=== PATIENT | female | born 1960 | race African-American/Black ===

== ENCOUNTER 2018-12-07 01:47 | Emergency (ER) | payer MEDICAID ==
[~2018-12-07] VITALS: Ht 175.3 cm; Wt 122.5 kg
[2018-12-07 02:00] VITALS: BP_SYST 124
[2018-12-07 07:05] VITALS: BP_SYST 124
== END 2018-12-07 07:05 | disposition home or self-care (01) ==
LOC: SED 01:47
DX: K21.9 Gastro-esophageal reflux disease without esophagitis (principal)
CPT/HCPCS: 99283

== ENCOUNTER 2019-04-30 12:44 | Emergency (ER) | payer MEDICAID ==
[~2019-04-30] VITALS: Ht 175.3 cm; Wt 140.6 kg
[2019-04-30 13:05] VITALS: BP_SYST 156
[2019-04-30 14:05] VITALS: BP_SYST 156
== END 2019-04-30 14:05 | disposition home or self-care (01) ==
LOC: SED 12:44
DX: B02.9 Zoster without complications (principal); E87.5 Hyperkalemia
CPT/HCPCS: 99281; 99283; J7030

== ENCOUNTER 2019-05-12 11:16 | Emergency (ER) | payer MEDICAID ==
[~2019-05-12] VITALS: Ht 167.6 cm; Wt 141.1 kg
[2019-05-12 11:20] VITALS: BP_SYST 182
--- NOTE | 2019-05-12 11:26 | NUR ---
Patient to ER bed 5 to gown for evaluation. Side rails up. Report given to Stephanie GLORIA.
--- NOTE | 2019-05-12 11:30 | NUR ---
Patient AAOx4 c/o bilateral leg pain. Patient states she has a prescription for Tramadol and was unable to refill it and called 911. Patient has PMH of HTN, DM, and hyperlipidemia. No signs or symptoms of acute distress noted. Addendum: 05/12/19 at 1306 by [email or web address] Patient also has schizophrenia and bipolar disease.
--- NOTE | 2019-05-12 11:58 | NUR ---
ER Dr. Darby at bedside examining patient.
--- NOTE | 2019-05-12 12:25 | NUR ---
Patient given written and verbal discharge instructions and verbalizes understanding. ER MD discussed with patient the results and treatment provided. Patient in stable condition. ID arm band removed. Rx of Tylenol, tramadol given. Patient educated on pain management and to follow up with PMD. Pain Scale 10/10, feels comfortable medicating when she gets home. Opportunity for questions provided and answered. Medication side effect fact sheet provided.
[2019-05-12 12:26] VITALS: BP_SYST 176
== END 2019-05-12 12:26 | disposition home or self-care (01) ==
LOC: SED 11:16
DX: B02.29 Other postherpetic nervous system involvement (principal); R03.0 Elevated blood-pressure reading, without diagnosis of hypertension
CPT/HCPCS: 99283

== ENCOUNTER 2019-05-20 13:10 | Emergency (ER) | payer MEDICAID ==
[~2019-05-20] VITALS: Ht 175.3 cm; Wt 140.2 kg
[2019-05-20 13:21] VITALS: BP_SYST 144
[2019-05-20] MEDS ORDERED: KETOROLAC TROMETHAMINE 60 MG/2 ML VIAL IM ONE (14:15)
[2019-05-20] MEDS ORDERED: KETOROLAC TROMETHAMINE 30 MG VIAL IVP ONE (14:30)
[2019-05-20] MEDS ORDERED: NACL 0.9% 1,000 ML IV ONE (14:30)
[2019-05-20 16:35] VITALS: BP_SYST 146
== END 2019-05-20 16:35 | disposition home or self-care (01) ==
LOC: SED 13:10
DX: B02.29 Other postherpetic nervous system involvement (principal); E11.9 Type 2 diabetes mellitus without complications; I10 Essential (primary) hypertension; E78.5 Hyperlipidemia, unspecified
CPT/HCPCS: 82962; 96374; 99283; J1885 ×2; J7030

== ENCOUNTER 2019-06-09 10:22 | Emergency (ER) | payer MEDICAID ==
[~2019-06-09] VITALS: Ht 172.7 cm; Wt 137.4 kg
[2019-06-09 10:29] VITALS: BP_SYST 11
--- NOTE | 2019-06-09 10:40 | NUR ---
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 denies dizziness , fever, chest pain.vital sign stable, afebrile. no other concerned noted.
--- NOTE | 2019-06-09 11:00 | NUR ---
ER at bedside examining patient.
--- NOTE | 2019-06-09 11:15 | NUR ---
Blood for labwork drawn from peripheral . Patient tolerated well.
--- NOTE | 2019-06-09 11:30 | NUR ---
EKG performed at BS by MG. Physician given copy of EKG for review.
[2019-06-09 12:01] LABS: BASOPHILS % (AUTO) 0.5 % (0.0-2.0); EOSINOPHILS # (AUTO) 0.1 K/uL (0.0-0.4); EOSINOPHILS % (AUTO) 1.9 % (0.0-4.0); HEMATOCRIT 33.7 % (36-48); HEMOGLOBIN 10.6 g/dL (12.0-16.0); LYMPHOCYTES # (AUTO) 1.7 K/uL (1.0-5.5); LYMPHOCYTES % (AUTO) 27.6 % (20.5-51.5); MEAN CORPUSCULAR HEMOGLOBIN 25 pg (27-31); MEAN CORPUSCULAR HGB CONC 31 % (32-36); MEAN CORPUSCULAR VOLUME 78 fL (79.0-98.0); MONOCYTES # (AUTO) 0.5 K/uL (0.0-1.0); MONOCYTES % (AUTO) 7.6 % (1.7-9.3); NEUTROPHILS # (AUTO) 3.8 K/uL (1.8-7.7); NEUTROPHILS % (AUTO) 62.4 % (40.0-70.0); PLATELET COUNT (AUTO) 351 K/uL (130-430); RED BLOOD CELL COUNT(AUTO) 4.33 MIL/uL (4.2-6.2); RED CELL DISTRIBUTION WIDTH 17.7 % (9.0-15.0); WHITE BLOOD COUNT (AUTO) 6.1 K/uL (4.8-10.8)
[2019-06-09 12:15] LABS: CALCIUM 9.7 mg/dL (8.4-11.0); CREATININE 1.31 mg/dL (0.55-1.30); POTASSIUM 4.6 mmol/L (3.5-5.1)
[2019-06-09 12:18] LABS: PROTHROMBIN TIME 10.3 SECS (9.5-12.5)
[2019-06-09 12:21] LABS: ALBUMIN 3.2 g/dL (3.4-4.8); TOTAL BILIRUBIN 0.5 mg/dL (0.0-1.0)
[2019-06-09 13:07] VITALS: BP_SYST 118
--- NOTE | 2019-06-09 13:09 | NUR ---
Patient given written and verbal discharge instructions and verbalizes understanding. ER MD discussed with patient the results and treatment provided. Patient in stable condition. ID arm band removed. Rx of Albuterol inhalor and prednisone given. Patient educated on pain management and to follow up with PMD. Pain Scale 0/10. Opportunity for questions provided and answered. Medication side effect fact sheet provided.
== END 2019-06-09 13:07 | disposition home or self-care (01) ==
LOC: SED 10:22
DX: J45.909 Unspecified asthma, uncomplicated (principal); E66.9 Obesity, unspecified; Z68.42 Body mass index [BMI] 45.0-49.9, adult
CPT/HCPCS: 36415; 71045; 80053; 83880; 84484; 84703; 85025; 85610-TC; 85730-TC; 93005; 99284

== ENCOUNTER 2024-03-18 03:26 | Inpatient (IN) | payer OTHER, MEDICAID ==
[~2024-03-18] VITALS: Ht 172.7 cm; Wt 126.1 kg
[2024-03-18 03:32] VITALS: BP_SYST 148; PULSE 97; RESP 20; TEMP 96.8; O2SAT 94
[2024-03-18 05:07] LABS: BASOPHILS # (AUTO) 0.1 K/uL (0.0-0.2); BASOPHILS % (AUTO) 0.6 % (0.0-2.0); EOSINOPHILS % (AUTO) 0.2 % (0.0-4.0); HEMATOCRIT 37.4 % (36-48); LYMPHOCYTES # (AUTO) 1.2 K/uL (1.0-5.5); LYMPHOCYTES % (AUTO) 13.3 % (20.5-51.5); MEAN CORPUSCULAR HEMOGLOBIN 28 pg (27-31); MEAN CORPUSCULAR HGB CONC 32 % (32-36); MEAN CORPUSCULAR VOLUME 88 fL (79.0-98.0); MONOCYTES # (AUTO) 0.6 K/uL (0.0-1.0); MONOCYTES % (AUTO) 6.5 % (1.7-9.3); NEUTROPHILS # (AUTO) 7.3 K/uL (1.8-7.7); NEUTROPHILS % (AUTO) 79.4 % (40.0-70.0); PLATELET COUNT (AUTO) 328 K/uL (130-430); RED BLOOD CELL COUNT(AUTO) 4.27 MIL/uL (4.2-6.2); RED CELL DISTRIBUTION WIDTH 14.8 % (9.0-15.0); WHITE BLOOD COUNT (AUTO) 9.2 K/uL (4.8-10.8)
[2024-03-18 05:29] LABS: ALBUMIN 3.3 g/dL (3.4-4.8); BILIRUBIN,DIRECT 0.1 mg/dL (0.0-0.3); CALCIUM 9.1 mg/dL (8.4-11.0); CREATININE 1.91 mg/dL (0.55-1.30); POTASSIUM 3.8 mmol/L (3.5-5.1); TOTAL BILIRUBIN 0.4 mg/dL (0.0-1.0); TOTAL PROTEIN, SERUM 7.5 g/dL (6.4-8.3)
[2024-03-18 05:51] LABS: CKMB RELATIVE INDEX 0.4 (0.0-2.9); CREATINE KINASE MB 0.9 ng/mL (0-3.6)
[2024-03-18] MEDS: NACL 0.9% 1,000 ML IV ONE (06:04)
[2024-03-18] MEDS ORDERED: ACETAMINOPHEN 325 MG TABLET ONE (06:28)
[2024-03-18] MEDS: ACETAMINOPHEN 650 MG/20.3 ML UDC PO ONE (06:31)
[2024-03-18] MEDS: ASPIRIN 81 MG TAB.CHEW PO ONE (09:11)
[2024-03-18] MEDS ORDERED: MORPHINE 2 MG/ML INJ. SYRINGE IVP PRN (09:45)
[2024-03-18] MEDS ORDERED: ONDANSETRON HCL 4 MG/2 ML VIAL IVP PRN (09:45)
[2024-03-18] MEDS ORDERED: *HEPARIN PER PHARMACY XX PRN (10:15)
[2024-03-18] MEDS ORDERED: ACETAMINOPHEN 325 MG TABLET PO PRN (10:15)
[2024-03-18] MEDS: NACL 0.9% 1,000 ML IV SCH (10:25)
[2024-03-18 11:00] LABS: PROTHROMBIN TIME 10.6 SECS (9.5-12.5)
[2024-03-18] MEDS ORDERED: HEPARIN SODIUM,PORCINE 2000 UNITS/0.4 ML BOLUS IVP PRN (11:00)
[2024-03-18] MEDS ORDERED: HEPARIN SODIUM,PORCINE 3000 UNITS/0.6 ML BOLUS IVP PRN (11:00)
[2024-03-18] MEDS: ENOXAPARIN SODIUM 40 MG/0.4 ML SYRINGE SUBCUT ONE (11:11)
[2024-03-18] MEDS: HEPARIN SODIUM,PORCINE 5,000 UNITS/ML VIAL SUBCUT ONE (12:41)
[2024-03-18] MEDS: HEPARIN 25,000 UNITS in 250 ML PREMIX IV PRN (12:48)
[2024-03-18 15:43] VITALS: BP_SYST 152; PULSE 62; RESP 15; TEMP 97.1; O2SAT 100
[2024-03-18 16:08] LABS: CKMB RELATIVE INDEX 0.3 (0.0-2.9); CREATINE KINASE MB 2.5 ng/mL (0-3.6)
[2024-03-18 16:44] LABS: BILIRUBIN,URINE NEGATIVE (NEGATIVE); BLOOD, URINE TRACE (NEGATIVE); CLARITY/URINE SLIGHTLY HAZY (CLEAR); COLOR,URINE YELLOW (YELLOW); GLUCOSE,URINE NEGATIVE (NEGATIVE); KETONES,URINE NEGATIVE (NEGATIVE); LEUKOCYTE ESTERASE ,URINE 1+ (NEGATIVE); NITRITE, URINE NEGATIVE (NEGATIVE); PH,URINE 6.5 (5.0-8.0); PROTEIN URINE TRACE (NEGATIVE); UROBILINOGEN,URINE 0.2 (0.2-1.0)
[2024-03-18 17:13] LABS: BACTERIA,URINE FEW /HPF (None Seen); MUCUS,URINE None Seen /LPF (None Seen); URINE AMORPHOUS URATE 1+ /HPF (None Seen)
[2024-03-18] MEDS ORDERED: D5W 1,000 ML IV PRN (17:15)
[2024-03-18] MEDS ORDERED: DEXTROSE 50% JECT 50 ML DISP.SYRIN IVP PRN (17:15)
[2024-03-18] MEDS ORDERED: GLUCOSE (DEXTROSE) ORAL GEL -Adults PO PRN (17:15)
[2024-03-18 18:51] LABS: YEAST,URINE Moderate /HPF (None Seen)
[2024-03-18 20:00] VITALS: BP_SYST 152; PULSE 79; RESP 18; TEMP 98; O2SAT 97
[2024-03-18] MEDS: HYDROcodone/ACETAMIN 5-325 MG TAB (NORCO/ VICODIN) PO PRN (20:30)
[2024-03-18] MEDS: INSULIN GLARGINE 100 UNITS/ML, 10 ML VIAL SUBCUT SCH (20:34)
[2024-03-19] VITALS (7 sets, daily range): BP systolic 148–177; PULSE 71–89; RESP 18–22; TEMP 97.6–98.2; O2SAT 97–99
[2024-03-19] MEDS: IPRATROPIUM/ALBUTEROL SULFATE 3 ML AMPUL.NEB (DUONEB) INH PRN (04:31)
[2024-03-19] MEDS: LORazepam 1 MG TABLET PO PRN (04:51)
[2024-03-19 04:56] LABS: BASOPHILS % (AUTO) 0.5 % (0.0-2.0); EOSINOPHILS # (AUTO) 0.2 K/uL (0.0-0.4); EOSINOPHILS % (AUTO) 2.8 % (0.0-4.0); HEMATOCRIT 33.7 % (36-48); LYMPHOCYTES # (AUTO) 2.1 K/uL (1.0-5.5); MEAN CORPUSCULAR HEMOGLOBIN 29 pg (27-31); MEAN CORPUSCULAR HGB CONC 33 % (32-36); MEAN CORPUSCULAR VOLUME 88 fL (79.0-98.0); MONOCYTES # (AUTO) 0.9 K/uL (0.0-1.0); MONOCYTES % (AUTO) 12.3 % (1.7-9.3); NEUTROPHILS # (AUTO) 3.8 K/uL (1.8-7.7); NEUTROPHILS % (AUTO) 54.4 % (40.0-70.0); PLATELET COUNT (AUTO) 299 K/uL (130-430); RED BLOOD CELL COUNT(AUTO) 3.84 MIL/uL (4.2-6.2); RED CELL DISTRIBUTION WIDTH 14.8 % (9.0-15.0)
[2024-03-19 07:54] LABS: ALBUMIN 2.9 g/dL (3.4-4.8); CALCIUM 8.7 mg/dL (8.4-11.0); CREATININE 1.2 mg/dL (0.55-1.30); POTASSIUM 3.7 mmol/L (3.5-5.1); TOTAL BILIRUBIN 0.4 mg/dL (0.0-1.0); TOTAL PROTEIN, SERUM 6.7 g/dL (6.4-8.3)
[2024-03-19 08:37] LABS: CKMB RELATIVE INDEX 0.2 (0.0-2.9); CREATINE KINASE MB 2.6 ng/mL (0-3.6)
[2024-03-19] MEDS ORDERED: ENOXAPARIN SODIUM 40 MG/0.4 ML SYRINGE SUBCUT SCH (09:00)
[2024-03-19] MEDS: ASPIRIN 81 MG TAB.CHEW PO SCH (10:40)
[2024-03-19] MEDS: ENOXAPARIN SODIUM 40 MG/0.4 ML SYRINGE SUBCUT SCH (10:41)
[2024-03-19] MEDS: hydrALAZINE HCL 20 MG/ML VIAL IVP PRN (10:42)
[2024-03-19] MEDS: ACETAMINOPHEN 325 MG TABLET PO PRN (11:28)
[2024-03-19] MEDS: amLODIPine BESYLATE 10 MG TABLET PO ONE (12:03)
[2024-03-20] VITALS (7 sets, daily range): BP systolic 126–166; PULSE 71–80; RESP 16–20; TEMP 97.5–98.6; O2SAT 97–99
[2024-03-20 06:10] LABS: BASOPHILS % (AUTO) 0.5 % (0.0-2.0); EOSINOPHILS # (AUTO) 0.4 K/uL (0.0-0.4); EOSINOPHILS % (AUTO) 5.8 % (0.0-4.0); HEMATOCRIT 36.1 % (36-48); HEMOGLOBIN 11.8 g/dL (12.0-16.0); LYMPHOCYTES # (AUTO) 1.6 K/uL (1.0-5.5); LYMPHOCYTES % (AUTO) 26.8 % (20.5-51.5); MEAN CORPUSCULAR HEMOGLOBIN 29 pg (27-31); MEAN CORPUSCULAR HGB CONC 33 % (32-36); MEAN CORPUSCULAR VOLUME 88 fL (79.0-98.0); MONOCYTES # (AUTO) 0.4 K/uL (0.0-1.0); MONOCYTES % (AUTO) 7.4 % (1.7-9.3); NEUTROPHILS # (AUTO) 3.6 K/uL (1.8-7.7); NEUTROPHILS % (AUTO) 59.5 % (40.0-70.0); PLATELET COUNT (AUTO) 299 K/uL (130-430); RED BLOOD CELL COUNT(AUTO) 4.09 MIL/uL (4.2-6.2); RED CELL DISTRIBUTION WIDTH 14.3 % (9.0-15.0); WHITE BLOOD COUNT (AUTO) 6.1 K/uL (4.8-10.8)
[2024-03-20 06:52] LABS: ALBUMIN 2.7 g/dL (3.4-4.8); CALCIUM 8.8 mg/dL (8.4-11.0); CREATININE 1.04 mg/dL (0.55-1.30); PHOSPHORUS 3.2 mg/dL (2.7-4.5); POTASSIUM 4.1 mmol/L (3.5-5.1); TOTAL BILIRUBIN 0.4 mg/dL (0.0-1.0); TOTAL PROTEIN, SERUM 6.7 g/dL (6.4-8.3)
[2024-03-20] MEDS: amLODIPine BESYLATE 10 MG TABLET PO SCH (09:08)
[2024-03-20 10:21] LABS: CKMB RELATIVE INDEX 0.2 (0.0-2.9); CREATINE KINASE MB 1.8 ng/mL (0-3.6)
[2024-03-20] MEDS ORDERED: hydrALAZINE HCL 25 MG TABLET PO PRN (10:30)
[2024-03-20] MEDS: LOSARTAN POTASSIUM 25 MG TABLET PO ONE (11:12)
[2024-03-20] MEDS ORDERED: NOR10 PO (11:45)
[2024-03-20] MEDS ORDERED: ASA81 PO (11:45)
[2024-03-20] MEDS ORDERED: LOSA-412 PO (11:45)
[2024-03-20] MEDS: LOSARTAN POTASSIUM 25 MG TABLET PO SCH (21:01)
[2024-03-21] VITALS (7 sets, daily range): BP systolic 139–165; PULSE 71–85; RESP 16–20; TEMP 97.3–98.6; O2SAT 98–100
[2024-03-21 08:17] LABS: BASOPHILS % (AUTO) 0.5 % (0.0-2.0); EOSINOPHILS # (AUTO) 0.3 K/uL (0.0-0.4); EOSINOPHILS % (AUTO) 3.6 % (0.0-4.0); HEMATOCRIT 37.8 % (36-48); HEMOGLOBIN 12.3 g/dL (12.0-16.0); LYMPHOCYTES # (AUTO) 1.3 K/uL (1.0-5.5); LYMPHOCYTES % (AUTO) 19.1 % (20.5-51.5); MEAN CORPUSCULAR HEMOGLOBIN 29 pg (27-31); MEAN CORPUSCULAR HGB CONC 33 % (32-36); MEAN CORPUSCULAR VOLUME 88 fL (79.0-98.0); MONOCYTES # (AUTO) 0.5 K/uL (0.0-1.0); MONOCYTES % (AUTO) 7.6 % (1.7-9.3); NEUTROPHILS # (AUTO) 4.8 K/uL (1.8-7.7); NEUTROPHILS % (AUTO) 69.2 % (40.0-70.0); PLATELET COUNT (AUTO) 323 K/uL (130-430); RED CELL DISTRIBUTION WIDTH 14.6 % (9.0-15.0)
[2024-03-21 08:22] LABS: CALCIUM 9.4 mg/dL (8.4-11.0); CREATININE 1.01 mg/dL (0.55-1.30); POTASSIUM 4.4 mmol/L (3.5-5.1)
[2024-03-22] VITALS (9 sets, daily range): BP systolic 145–182; PULSE 66–82; RESP 16–18; TEMP 96.3–98.2; O2SAT 95–100
[2024-03-23] VITALS (8 sets, daily range): BP systolic 108–174; PULSE 73–89; RESP 15–17; TEMP 97.1–97.9; O2SAT 95–99
[2024-03-23 08:26] LABS: BASOPHILS % (AUTO) 0.6 % (0.0-2.0); EOSINOPHILS # (AUTO) 0.2 K/uL (0.0-0.4); EOSINOPHILS % (AUTO) 3.1 % (0.0-4.0); HEMATOCRIT 36.9 % (36-48); LYMPHOCYTES # (AUTO) 1.5 K/uL (1.0-5.5); MEAN CORPUSCULAR HEMOGLOBIN 28 pg (27-31); MEAN CORPUSCULAR HGB CONC 33 % (32-36); MEAN CORPUSCULAR VOLUME 87 fL (79.0-98.0); MONOCYTES # (AUTO) 0.6 K/uL (0.0-1.0); MONOCYTES % (AUTO) 9.7 % (1.7-9.3); NEUTROPHILS # (AUTO) 3.4 K/uL (1.8-7.7); NEUTROPHILS % (AUTO) 60.6 % (40.0-70.0); PLATELET COUNT (AUTO) 311 K/uL (130-430); RED BLOOD CELL COUNT(AUTO) 4.23 MIL/uL (4.2-6.2); WHITE BLOOD COUNT (AUTO) 5.7 K/uL (4.8-10.8)
[2024-03-23 08:29] LABS: CALCIUM 9.2 mg/dL (8.4-11.0); CREATININE 0.97 mg/dL (0.55-1.30); POTASSIUM 4.7 mmol/L (3.5-5.1)
[2024-03-23] MEDS: INSULIN LISPRO SLIDING SCALE 100 UNITS/ML, 3 ML VIAL (humaLOG) SUBCUT PRN (18:17)
[2024-03-24 01:48] VITALS: BP_SYST 156; PULSE 78; RESP 16; TEMP 97.1; O2SAT 95
[2024-03-24 08:10] VITALS: BP_SYST 149; PULSE 65; RESP 17; TEMP 97.9; O2SAT 99
[2024-03-24 08:45] VITALS: O2SAT 99
[2024-03-24 11:50] VITALS: BP_SYST 149; PULSE 64; RESP 16; TEMP 98.3; O2SAT 100
[2024-03-24 17:07] VITALS: BP_SYST 153; PULSE 69; RESP 16; TEMP 98; O2SAT 97
[2024-03-24 17:53] VITALS: BP_SYST 153; PULSE 69; RESP 16; TEMP 98; O2SAT 100
== END 2024-03-24 19:38 | disposition home or self-care (01) | DRG 557 ==
LOC: SED 03:26 → STU 09:36 → SMU 03-20 11:17
PROVIDERS: ADMIT Student in an Organized Health Care Education/Training Program; ATTEND Student in an Organized Health Care Education/Training Program
DX: M62.82 Rhabdomyolysis (principal); N17.0 Acute kidney failure with tubular necrosis; E44.1 Mild protein-calorie malnutrition; E87.0 Hyperosmolality and hypernatremia; I13.0 Hypertensive heart and chronic kidney disease with heart failure and stage 1 through stage 4 chronic kidney disease, or unspecified chronic kidney disease; Z68.41 Body mass index [BMI] 40.0-44.9, adult; M60.9 Myositis, unspecified; E11.40 Type 2 diabetes mellitus with diabetic neuropathy, unspecified; I89.0 Lymphedema, not elsewhere classified; E78.5 Hyperlipidemia, unspecified; Z79.4 Long term (current) use of insulin; Z79.899 Other long term (current) drug therapy; E11.22 Type 2 diabetes mellitus with diabetic chronic kidney disease; N18.9 Chronic kidney disease, unspecified; E11.42 Type 2 diabetes mellitus with diabetic polyneuropathy; F31.9 Bipolar disorder, unspecified; E66.9 Obesity, unspecified; Z79.82 Long term (current) use of aspirin
CPT/HCPCS: 36415; 70450-TC; 71045; 76770; 80048; 80053; 80076; 81000; 81001; 81015; 82085; 82550; 82553; 82570; 82948; 83735; 83880; 84100; 84484; 85025; 85610; 85651; 85730; 87040; 87086; 92610-GN; 93005; 93306; 93971; 94070; 94760; 96361; 96372; 97110-GP; 97112-GP; 97116-GP; 97530-GP; 99285; G0378; J0360; J1644; J1650; J1815